=== PATIENT | male | born 2000 | race African-American/Black ===

== ENCOUNTER 2021-11-20 18:49 | Emergency (ER) | payer MEDICAID ==
[~2021-11-20] VITALS: Ht 188 cm; Wt 75.0 kg
[~2021-11-20 18:49] MED LIST: CEPHALEXIN500 M1 PO
[2021-11-20 18:52] VITALS: TEMP 97.5
[2021-11-20 21:13] VITALS: BP 117/74; PULSE 79
[2021-11-20] MEDS ORDERED: CEPHALEXIN500 M1 PO (21:21)
== END 2021-11-20 21:42 | disposition home or self-care (01) ==
LOC: COL.ER 18:49
DX: S62.634A Displaced fracture of distal phalanx of right ring finger, initial encounter for closed fracture (principal); W23.1XXA Caught, crushed, jammed, or pinched between stationary objects, initial encounter; Y92.828 Other wilderness area as the place of occurrence of the external cause